=== PATIENT | male | born 1940 | race Caucasian/White ===

== ENCOUNTER → 2016-08-16 | Outpatient (CLI) | payer MEDICARE ==
[~2016-08-16] MED LIST: ALLO100T PO; ASPI81TA11 PO; ATEN100T PO; CARD180C5 PO; ESCI10TA PO; FURO20TA PO; ISOS30TA15 PO; ISOS60TA PO; LIPI40TA PO; LOSA100T PO; NEXI40CA PO; NITR0.4S SL; PLAV75TA29 PO; POTA10TA2 PO; SPIRCAP INH; TELM40 PO; UMEC1INH INH
[2016-08-16 11:54] LABS: AUTOMATED NEUTROPHIL # 4.4 TH/MM3 (1.8-7.7); BASOPHIL % 0.6 % (0.0-2.0); EOSINOPHIL # 0.4 TH/MM3 (0-0.4); EOSINOPHIL % 5.9 % (0.0-4.0); HEMO FLAGS DIFF FINAL; LYMPH % 13.5 % (9.0-44.0); LYMPHOCYTE # 0.8 TH/MM3 (1.0-4.8); MEAN CORPUSCULAR HEMOGLOBIN 29.3 PG (27.0-34.0); MEAN CORPUSCULAR HGB CONC 33.3 % (32.0-36.0); MONO % 10.9 % (0.0-8.0); NEUT % 69.1 % (16.0-70.0); PLATELET COUNT 248 TH/MM3 (150-450); RED BLOOD COUNT 4.32 MIL/MM3 (4.50-5.90); RED CELL DISTRIBUTION WIDTH 13.9 % (11.6-17.2); WHITE BLOOD COUNT 6.3 TH/MM3 (4.0-11.0)
== END ==
LOC: PHPRE 11:14
PROVIDERS: ATTEND Ophthalmology
DX: Z01.812 Encounter for preprocedural laboratory examination (principal); H26.9 Unspecified cataract
CPT/HCPCS: 36415; 85025

== ENCOUNTER → 2016-08-23 | Day surgery (SDC) | payer MEDICARE ==
--- NOTE | 2016-08-16 17:45 | MH ---
cc: VERONIKA JOSEPH DATE OF ADMISSION 08/23/2016 ADMISSION DIAGNOSIS Cataract left eye. HISTORY OF PRESENT ILLNESS This 75-year-old white male is coming through [facility] for the purpose of a lens extraction of the left eye with intraocular lens implant under local anesthesia. He has noticed decreasing visual acuity interfering with his daily activities and elected to have the above procedure. His best corrected visual acuity is 20/40 -2 in the right eye and 20/50 -2 in the left eye in room light. PAST MEDICAL HISTORY The patient has a history of: 1. Hypertension. 2. Cholesterol problems. 3. Myocardial infarction in the year 1999. 4. Obviously arteriosclerotic heart disease. PAST SURGICAL HISTORY The patient has a history of: 1. Heart bypass surgery. 2. Ear surgery. 3. Cardiac stent. 4. Bilateral carotid endarterectomy. 5. Skin tags removed. MEDICATIONS His daily medications include: 1. Atenolol. 2. Furosemide. 3. Aspirin. 4. Lipitor. 5. Enalapril. 6. Micardis. 7. Allopurinol. 8. Fish oil. 9. Multivitamins. 10. Plavix. ALLERGIES NO KNOWN ALLERGIES. SOCIAL HISTORY Does not smoke. Drinks alcohol twice a week. FAMILY HISTORY Noncontributory. REVIEW OF SYSTEMS HEAD: Patient denies severe headaches, dizziness or recent head injury. EARS: Patient denies hearing loss, ear pain, discharge or ringing in the ears. NOSE: Patient denies nasal discharge, obstruction or frequent colds. MOUTH AND THROAT: Patient denies soreness of the mouth or tongue, bleeding gums, trouble swallowing, changes in voice or sore throat. NECK: Patient denies neck pain or swelling, limitation of neck movement or neck injury. CARDIOPULMONARY SYSTEM: The patient has chronic obstructive pulmonary disease and he has wheezing due to that. Sleeps with a few pillows for comfort. Patient denies shortness of breath, chronic cough, sputum production, hemoptysis, chest pain, wheezing, palpitations or light-headedness. GI SYSTEM: Patient denies poor appetite, nausea, vomiting, abdominal pain, ulcers, hemorrhoids or change in bowel habits. SYSTEM: The patient has urinary frequency day and night. Denies change in urine color. NERVOUS SYSTEM: Patient denies convulsions, vertigo, stroke, numbness. He has some weakness in his extremities. The rest is negative. PHYSICAL EXAMINATION VITAL SIGNS: Blood pressure is 138/82, pulse 64, respirations 16. HEAD: Normocephalic, atraumatic. NOSE: Without rhinorrhea. THROAT: Clear. NECK: Supple. CHEST: Clear. HEART: Irregular rhythm. ABDOMEN: Without tenderness. EXTREMITIES: With some ankle edema. NEUROLOGIC: Within normal limits. MENTAL STATUS: Within normal limits. EYE EXAMINATION: The patient's best corrected visual acuity in room light is 20/40 -2 in the right eye and 20/50 -2 in the left. Visual carr are full to confrontation testing. Extraocular muscle exam reveals full versions with orthophoria at distance and near. Pupils are 3 mm equal, round, reactive to light without afferent defect. Anterior segment examination reveals dermatochalasis of the eyelid skin. There are nuclear sclerotic and cortical cataract changes bilaterally. Intraocular pressure is 18 in the right eye and 19 in the left by applanation tonometry. Dilated fundus exam reveals sharp disk with cup-to-disk ratio 0.2 bilaterally. Peripapillary atrophy is present greater in the right eye than the left. The macula is within normal limits. Background has a difficult view but seems to have early signs of posterior vitreous detachment. IMPRESSION 1. Bilateral cataracts. 2. Dermatochalasis, 3. Possible posterior vitreous detachment both eyes. PLAN The plan is lens extraction of the left eye with intraocular lens implant under local anesthesia through [facility]. Iris retractors may be used in this patient whose pupils do not dilate well. The patient has been cleared medically. He has been counseled as to the risks, benefits and alternatives and elected to proceed. I feel that cataract surgery will improve the quality of life and activities of daily living in this patient. MD SAMARA Baez/RACHEL /5:00 PM /5:23 PM
[~2016-08-23] VITALS: Ht 172.7 cm; Wt 109.0 kg
[~2016-08-23] MED LIST changes: +ACETYLCHOLINE CHL OPHT SOLN 1:100 2 ML VIAL ONE; +BALANCED SALT SOLN OPHT IRRIG 15 ML BTL ONE; +CHLORHEXIDINE GLUCONATE 2 % 1 PACK (2 CLOTHS) TOPICAL PRN; +EPINEPHrine HCL (1:1000) 1 MG/ML VIAL ONE; -FURO20TA PO; +HYALURONIDASE/LIDOCAINE/BUPIVACAINE 4.5 ML SYR LEFT EYE ONE; +HYALURONIDASE/LIDOCAINE/BUPIVACAINE 6 ML SYR LEFT EYE ONE; +INSULIN HUMAN REGULAR 1,000 UNITS/10 ML VIAL SQ PRN; -ISOS30TA15 PO; +LACTATED RINGER'S 1000 ML IV PRN; +METOPROLOL TARTRATE 25 MG TAB PO PRN; -NEXI40CA PO; +PILOCARPINE HCL 2% OPHT SOLN 15 ML BTL ONE; +POVIDONE IODINE 5% (ANTISEPSIS KIT) 4 APPLICATIONS EACH NARE PRN; +PROPARACAINE HCL 0.5% OPHT SOLN 15 ML BTL LEFT EYE ONE; +PROPOFOL 200 MG/20 ML AMP ONE; +SODIUM CHLORID 0.9% 500 ML IV PRN; -SPIRCAP INH; -TELM40 PO; +TETRACAINE 0.5% OPTH SOLN 4 ML BTL ONE; +TOBRAMYCIN/DEXAMETHASONE OPTH OINT 3.5 GM TUBE ONE; +VISCOAT OPHT IRRIG SOLN 0.75 ML SYRINGE LEFT EYE ONE
[2016-08-23 07:15] VITALS: BP 138/85; PULSE 85; RESP 16; TEMP 97.7; O2SAT 97
[2016-08-23 07:20] VITALS: PULSE 85
[2016-08-23] MEDS: CYCLOPENTOLATE HCL 1% OPHT SOLN 2 ML BTL LEFT EYE SCH ×4 (07:23→07:32)
[2016-08-23] MEDS: TROPICAMIDE 1% OPHT SOLN 15 ML BTL LEFT EYE SCH ×4 (07:23→07:32)
[2016-08-23] MEDS: PHENYLEPHRINE HCL 2.5% OPTH SOLN 2 ML BTL LEFT EYE SCH ×4 (07:23→07:32)
[2016-08-23] MEDS: DICLOFENAC SOD 0.1% OPHT SOLN 2.5 ML BTL LEFT EYE SCH ×4 (07:23→07:32)
[2016-08-23] MEDS: GATIFLOXACIN 0.5% OPHT SOLN 2.5 ML BTL LEFT EYE SCH ×4 (07:23→07:32)
[2016-08-23 07:55] VITALS: PULSE 73
[2016-08-23 10:55] VITALS: BP 145/85; PULSE 82; RESP 16; TEMP 98; O2SAT 94
--- NOTE | 2016-08-25 08:07 | MP ---
cc: VERONIKA PATRICIO DATE OF SURGERY: 08/23/2016 PREOPERATIVE DIAGNOSIS Cataract, left eye. POSTOPERATIVE DIAGNOSIS Cataract, left eye. OPERATION Extracapsular cataract extraction with posterior chamber intraocular lens implant by phacoemulsification, left eye. SURGEON Veronika Patricio M.D. ANESTHESIA Local. COMPLICATIONS None. INDICATIONS See history and physical previously dictated. OPERATIVE PROCEDURE The patient had adequate retrobulbar and eyelid blocks administered in the holding area and was brought to the operating room. The left eye was prepped and draped in the usual sterile ophthalmic manner. A lid speculum was inserted in the left eye. A 4-0 silk bridle suture was placed through the conjunctiva near the superior rectus muscle and it was tagged to the drape. A fornix-based conjunctival flap was prepared spanning approximately 5 mm in width. Hemostasis was obtained with wet-field cautery. A 3.5 mm groove was made 1 mm from the limbus and dissected up to the limbus in the form of a scleral pocket incision. A stab incision was then made at the 2 o'clock position. Viscoelastic was injected into the anterior chamber. In order to maintain an adequately dilated pupil, it was elected to use iris retractors in this case. Stab incisions were made at the 1 o'clock, 3 o'clock, 5 o'clock, 8 o'clock and 10 o'clock positions. Iris retractors were then inserted through the stab incisions in the peripheral cornea and positioned to enlarge the size of the pupil. The anterior chamber was entered with a 3.0 mm keratome through the scleral pocket incision. A 360 degree continuous curvilinear capsulorrhexis was then performed. Hydrodissection was utilized to divide the nucleus into inner and outer components and to separate the cortex from the capsule. Phacoemulsification was then utilized to remove the nucleus. The outer nuclear layer was removed with irrigation and aspiration and short bursts of ultrasound as necessary. The cortex was removed with the irrigation-aspiration handpiece. The posterior capsule was polished with the capsule polisher. Viscoelastic was injected into the capsular bag. The intraocular lens was inspected and found to be in good condition. The lens utilized was a Andrei, model SA60AT with a power of +24.5 diopters. The lens was inserted into the capsular bag. The five iris retractors were removed. The viscoelastic in the anterior chamber was then removed with the irrigation-aspiration hand piece. Viscoelastic was also removed from beneath the intraocular lens. The anterior chamber was filled with Miochol-E through the stab incision and pressurized. The wound was checked for leaks at this pressure and normalized pressure and there were none. The 4-0 bridle suture was removed. The conjunctival flap was brought down over the wound and secured with cautery. Pilocarpine 2% eye drops were instilled topically. The lid speculum was removed. TobraDex ophthalmic ointment was applied. The eye was double patched and shielded. The patient tolerated the procedure well and left the Operating Room in satisfactory condition. MD SAMARA Baez/LAURA /10:49 AM /8:03 AM
== END | disposition home or self-care (01) ==
LOC: PHSDC 06:59
PROVIDERS: ATTEND Ophthalmology
DX: H26.9 Unspecified cataract (principal); I10 Essential (primary) hypertension; I25.10 Atherosclerotic heart disease of native coronary artery without angina pectoris; I25.2 Old myocardial infarction; Z95.5 Presence of coronary angioplasty implant and graft; Z79.899 Other long term (current) drug therapy; Z79.82 Long term (current) use of aspirin
CPT/HCPCS: 00142; 66984; J0171; J7040; V2632